=== PATIENT | female | born 1945 | race American Indian/Alaskan Native ===

== ENCOUNTER 2017-03-28 14:46 | Outpatient (CLI) | payer MEDICARE ==
--- NOTE | 2017-03-30 07:47 | Vascular Lab Report ---
Right Lower Extremity Venous Duplex Study: Reason for Exam: Pain of the right lower extremity. Comments on the Right: All veins visualized are freely compressible without evidence of internal echogenicity. Flow is spontaneous and phasic throughout. No evidence of acute or chronic thrombus is seen in any of the vessels visualized. Comments on the Left: A limited duplex study was done of the proximal veins of the left lower extremity. All veins visualized are freely compressible without evidence of internal echogenicity. Flow is spontaneous and phasic throughout. No evidence of acute or chronic thrombus is seen in any of the vessels visualized. Impression: No evidence of acute or chronic deep venous thrombosis in the right lower extremity.
== END 2017-03-28 14:47 | disposition home or self-care (01) ==
LOC: VAS 14:46
PROVIDERS: ATTEND Family Medicine
DX: M79.604 Pain in right leg (principal)

== ENCOUNTER 2017-04-26 10:59 | Outpatient (CLI) | payer MEDICARE ==
--- NOTE | 2017-04-27 13:12 | Ultrasound Report ---
THYROID ULTRASOUND:04/26/17 10:59:00 CLINICAL: History of a right neck mass separate from the thyroid. Ultrasound guided needle biopsy on 08/19/14 revealed benign thyroid follicular cells and colloid consistent with ectopic thyroid tissue. FINDINGS: High-resolution ultrasound demonstrated an enlarged and multinodular thyroid. The right lobe measures 3.9 x 1.8 x 1.9cm. The left lobe measures 5.1 x 3.0 x 3.0. The isthmus measures 3 mm AP thickness. Stable right thyroid cysts and heterogeneous complex nodules which are typical of benign hyperplastic nodules. The largest right nodule measures 1.5 x 1.1 x 1.5 cm. A heterogeneous solid nodule of the left lobe is not significantly changed and measures 4.9 x 2.5 cm compared to 4.3 x 2.3 cm on the last exam. Slight differences in measurements are attributable to differences in technique. Stable right ectopic thyroid tissue measuring 1.6 x 0.5 x 0.9 cm. IMPRESSION: Multinodular thyroid without significant change. 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
== END 2017-04-26 11:00 | disposition home or self-care (01) ==
LOC: SPVWC 10:59
PROVIDERS: ATTEND Internal Medicine Endocrinology, Diabetes & Metabolism
DX: E04.2 Nontoxic multinodular goiter (principal)
CPT/HCPCS: 76536

== ENCOUNTER 2017-12-30 12:46 | Emergency (ER) | payer MEDICARE ==
--- NOTE | 2017-12-30 13:56 | Emergency Department Report ---
ED Back Pain/Injury HPI - General Chief Complaint: Extremity Injury, Lower Stated Complaint: BACK PAIN Time Seen by Provider: 12/30/17 13:49 Source: patient Limitations: No Limitations - History of Present Illness Initial Comments: Patient is a 72-year-old [place] female with a past medical history of lower back pain and rheumatoid arthritis who states for the past 2-3 days she's had some increased left hip pain radiating to the buttock and left lower extremity. Patient states she's had this before at times. Patient is taking Ultram of this opiate prescriptions states that he wears off relatively quickly. Patient denies any bowel or bladder dysfunction at this time. Patient denies any trauma. Patient states the pain is a 8 IN severity and is worse when she is moving standing or sitting. - Related Data Home Medications Medication Instructions Recorded Confirmed Last Taken Aliskiren/Hydrochlorothiazide 1 each PO DAILY 08/19/14 08/19/14 12/30/15 [Tekturna Hct 300-25 mg Tablet] Ca/D3/Mag Ox/Zinc/Lining Machine Operator/Robert/Bor 1 each PO BID 08/19/14 08/19/14 12/30/15 [Caltrate 600+D Plus Tab Chew] Cod Liver Oil 1 each PO DAILY 08/19/14 08/19/14 12/30/15 Ibandronate Sodium [Boniva] 150 mg PO QMONTH 08/19/14 08/19/14 12/30/15 Leflunomide 20 mg PO DAILY 08/19/14 08/19/14 12/30/15 Prednisone 5 mg PO DAILY 08/19/14 08/19/14 12/30/15 Arava 12/30/15 12/30/15 Loperamide [Imodium] 2 mg PO 12/30/15 12/30/15 Tekturna 300 mg PO DAILY 12/30/15 12/30/15 12/30/15 amLODIPine 12/30/15 12/31/15 Previous Rx's Medication Instructions Recorded Last Taken Type Ibuprofen [Motrin 600 MG tab] 600 mg PO Q8H PRN #30 tablet 06/19/16 Unknown Rx methOCARBAMOL [Robaxin TAB] 500 mg PO BID #30 tab 06/19/16 Unknown Rx HYDROcodone/APAP 5-325 [Harrell 1 each PO Q4HR PRN #12 tablet 12/30/17 Unknown Rx 5/325] Ibuprofen [Motrin] 600 mg PO Q8H PRN #20 tablet 12/30/17 Unknown Rx methOCARBAMOL [Robaxin TAB] 500 mg PO Q6H PRN #10 tablet 12/30/17 Unknown Rx Allergies Allergy/AdvReac Type Severity Reaction Status Date / Time Iodine and Iodide Containing Allergy Intermediate Vomiting Verified 12/30/17 13: 07 Produc latex Allergy Intermediate Rash Verified 12/30/17 13:07 Sulfa (Sulfonamide Allergy Intermediate Diarrhea Verified 12/30/17 13:07 Antibiotics) shellfish derived AdvReac Nausea Verified 12/30/17 13:07 ED Review of Systems ROS: Stated complaint: BACK PAIN Other details as noted in HPI Comment: All other systems reviewed and negative ED Past Medical Hx - Past Medical History rheumatoid arthritis, lung CA (remission 2018) Family history: no significant family history ED Back Pain Physical Exam - Exam General: Vital signs noted. No distress. Alert and acting appropriately. Back/Abdomen: Yes Sacroiliac Tenderness (left lower back and buttock pain), No Abdominal Tenderness, No Perithoracic Tenderness, No Perilumbar Tenderness, No Flank Tenderness, No Straight Leg Raise Pain Neuro: Yes Normal Sensation, Yes Normal DTR's, Yes Normal Gait, No Motor Weakness ED Course Vital Signs 12/30/17 13:02 Temperature 98.3 F Pulse Rate 82 Respiratory 20 Rate Blood Pressure 171/83 O2 Sat by Pulse 99 Oximetry Critical care attestation.: If time is entered above; I have spent that time in minutes in the direct care of this critically ill patient, excluding procedure time. ED Disposition Clinical Impression: Sciatica Qualifiers: Laterality: left Qualified Code(s): M54.32 - Sciatica, left side Disposition: DC-01 TO HOME OR SELFCARE Is pt being admited?: No Does the pt Need Aspirin: No Condition: Stable Instructions: Lumbar Radiculopathy (ED) Referrals: PAMELA NICK MD [Staff Physician] - 3-5 Days
[2017-12-30 14:07] VITALS: BP 136/76
== END 2017-12-30 14:05 | disposition home or self-care (01) ==
LOC: ED 12:46
DX: M54.32 Sciatica, left side (principal); M06.9 Rheumatoid arthritis, unspecified; Z91.040 Latex allergy status; Z88.2 Allergy status to sulfonamides; Z91.013 Allergy to seafood
CPT/HCPCS: 99282

== ENCOUNTER 2018-03-15 08:01 | Outpatient (CLI) | payer MEDICARE ==
--- NOTE | 2018-03-15 11:53 | Nuclear Medicine Report ---
BONE SCAN: History: Lung cancer. Comparison: No relevant comparison at this facility. After injection of isotope, gamma camera imaging of the bony system was done. There is a normal uptake of isotope throughout the bony structures without areas of significantly increased or decreased uptake. Normal uptake in the urinary system is seen. IMPRESSION: Negative bone scan.
== END 2018-03-15 08:02 | disposition home or self-care (01) ==
LOC: NM 08:01
PROVIDERS: ATTEND Internal Medicine Rheumatology
DX: C34.91 Malignant neoplasm of unspecified part of right bronchus or lung (principal); M19.90 Unspecified osteoarthritis, unspecified site; I10 Essential (primary) hypertension; K21.9 Gastro-esophageal reflux disease without esophagitis; Z90.89 Acquired absence of other organs; Z90.710 Acquired absence of both cervix and uterus; Z90.2 Acquired absence of lung [part of]
CPT/HCPCS: 78306; A9503

== ENCOUNTER 2019-04-23 13:18 | Outpatient (CLI) | payer MEDICARE ==
--- NOTE | 2019-04-23 16:09 | Ultrasound Report ---
ULTRASOUND THYROID INDICATION / CLINICAL INFORMATION: MULTINODULAR GOITER. COMPARISON: 04/17/2018 FINDINGS: RIGHT LOBE: Size = 4.8 x 1.7 x 1.9 cm. - Echogenicity: Diffusely heterogeneous. - Vascularity: Normal. - Nodules: A complex dominant nodule in the mid right lobe measures 1.3 x 1.0 x 1.2 cm compared to 1. 2 x 0.8 x 1.1 cm on the last exam. A second similar complex nodule is more inferior and measures 1.4 x 0.9 x 1.2 cm compared to 1.3 x 0.8 x 0.6 cm on the last exam. Several benign cysts throughout the r ight lobe. LEFT LOBE: Size = 6.1 x 2.9 x 3.8 cm. - Echogenicity: Diffusely heterogeneous. - Vascularity: Normal. - Nodules: The left lobe has a diffusely nodular pattern and could be measured as a single nodule loulou suring 5.3 x 2.5 x 3.8 cm. However, it has not changed in appearance since the last exam. ISTHMUS: 2 tiny benign cyst. Thickness = 0.5 cm. -Nodules: None.. LYMPH NODES: No abnormal lymph nodes. PARATHYROID GLANDS: No abnormal parathyroid gland. ADDITIONAL FINDINGS: None. IMPRESSION: 1. Multinodular goiter without significant change compared to the last exam. 2. The complex nodules of the right lobe have characteristics typical of benign hyperplastic nodules. 3. No suspicious nodules. Note: Nodule size based on mean (average) size of 3 dimensions. Note: Nodules < 1 cm do not typically require follow-up or FNA unless there are suspicious features ( [place], 2015) ACR TI-RADS Thyroid Nodule Recommendations TI-RADS 1 (0 points) -- Benign. No FNA or follow-up. TI-RADS 2 (1-2 points) -- Not suspicious. No FNA or follow-up. TI-RADS 3 (3 points) -- Mildly suspicious. Follow up in 1 year if 1.5 cm. FNA if 2.5 cm. TI-RADS 4 (4-6 points) -- Moderately suspicious. Follow up in 1 year if 1.0 cm. FNA if 1.5 cm. TI-RADS 5 (7+ points) -- Highly suspicious. Follow up in 1 year if 0.5 cm. FNA if 1.0 cm. Signer Name: Ryan Barros MD Signed: 04/23/2019 4:04 PM Workstation Name: [id number]
== END 2019-04-23 13:19 | disposition home or self-care (01) ==
LOC: SPVWC 13:18
PROVIDERS: ATTEND Internal Medicine Endocrinology, Diabetes & Metabolism
DX: E04.2 Nontoxic multinodular goiter (principal); M19.90 Unspecified osteoarthritis, unspecified site; I10 Essential (primary) hypertension; K21.9 Gastro-esophageal reflux disease without esophagitis; Z90.710 Acquired absence of both cervix and uterus
CPT/HCPCS: 76536

== ENCOUNTER 2019-08-24 09:17 | Outpatient (CLI) | payer MEDICARE ==
--- NOTE | 2019-08-24 12:09 | Vascular Lab Report ---
Duplex Doppler renal ultrasound with spectral analysis INDICATION: ESSENTIAL HYPERTENSION. COMPARISON: No relevant prior imaging study available. FINDINGS: RIGHT KIDNEY: Size: 9.7 cm. Echogenicity: Normal. Cortical thickness: Normal. Stones: None. Hydronephrosis: None. Cyst or mass: None. LEFT KIDNEY: Size: 11.3 cm. Echogenicity: Normal. Cortical thickness: Normal. Stones: None. Hydronephrosis: None. Cyst or mass: None. Urinary Bladder: No significant abnormality. Free Fluid: None. Additional Findings: None. Peak systolic velocities (centimeters per second): Abdominal aorta: 111 Proximal right renal artery: 115 Mid right renal artery: 119 Distal right renal artery: 128 Right Renal-Aorta ratio (RAR): 1.3 Proximal left renal artery: 114 Mid left renal artery: 115 Distal left renal artery: 87 Left renal-Aortic ratio (RAR): 1.1 Segmental right renal artery resistive indices: 0.69 - 0.77 Segmental left renal artery resistive indices: 0.67 - 0.82 IMPRESSION 1. No acute sonographic abnormality of the kidneys. 2. Bilateral intrarenal resistive indices are mildly elevated. Main renal arteries are unremarkable. Renal artery Stenosis Criteria: Normal: RAR: < 3.5 PSV: <200 cm/s <60% stenosis: RAR: < 3.5 PSV: >200 cm/s >=60% stenosis: RAR: >=3.5 PSV: >=200 cm/s Resistive Indices Criteria: Normal value: ~0.60 Upper limits of normal: ~0.70 Signer Name: Ray Alejo MD Signed: 08/24/2019 12:05 PM Workstation Name: [email or web address]
== END 2019-08-24 09:18 | disposition home or self-care (01) ==
LOC: VAS 09:17
PROVIDERS: ATTEND Internal Medicine Nephrology
DX: I10 Essential (primary) hypertension (principal)
CPT/HCPCS: 93975